=== PATIENT | female | born 1990 | race Caucasian/White ===

== ENCOUNTER 2019-03-24 12:49 | Emergency (ER) | payer OTHER ==
[2019-03-24 13:14] VITALS: BP 108/66; PULSE 86; TEMP 98.4; BMI 55.4
--- NOTE | 2019-03-24 13:15 | PDOC ---
Rapid Medical Evaluation Chief Complaint: Nausea/Vomiting Time Seen by Provider: 03/24/19 13:11 Medical Evaluation: Allergies Allergy/AdvReac Type Severity Reaction Status Date / Time No Known Allergies Allergy Verified 03/24/19 13:11 03/24/19 13:12 I have performed a brief in-person evaluation of this patient. The patient presents with a chief complaint of: N/V, cabrera, diarrhea and dizziness x 2 days after suddenly stopping paxil meds for Anxiety. pt report she gets this symptoms when she forgets to take meds . pt report vomiting 2 hrs ago. Denies fever, chills, abd pains, SOB, palpitations Pertinent physical exam findings: A&O x 3 in NAD. heart RRR. I have ordered the following: ua, uhcg, UCx. CBC, CMP The patient will proceed to the ED for further evaluation. Discharge Disposition - Diagnosis Dizziness Nausea & vomiting Qualifiers: Vomiting type: unspecified Vomiting Intractability: non-intractable Qualified Code(s): R11.2 - Nausea with vomiting, unspecified - Discharge Dispostion Condition at time of disposition: Stable - Referrals - Patient Instructions - Post Discharge Activity
[2019-03-24 14:37] LABS: BASO % 0.7 % (0-2.0); EOS % 1.9 % (0-4.5); HEMOGLOBIN 14.5 GM/dL (10.7-15.3); LYMPH % 24.5 % (8-40); MCH 27.9 pg (25.7-33.7); MCHC 32.9 g/dl (32.0-36.0); MEAN PLT VOLUME 9.1 fl (7.5-11.1); MONO % 6.1 % (3.8-10.2); NEUT % 66.8 % (42.8-82.8); PLATELET COUNT 329 K/MM3 (134-434); RBC 5.17 M/mm3 (3.60-5.2); RDW 15.1 % (11.6-15.6); WHITE BLOOD COUNT 13.4 K/mm3 (4.0-10.0)
[2019-03-24 14:50] LABS: EPI CELLS 8.7 /HPF (0-5/HPF); HYALINE CASTS 1 /lpf (0-8); PH,URINE 6.5 (5.0-8.0); URINE APPEARANCE CLEAR; URINE BACTERIA 196.5 /hpf (NEGATIVE); URINE BILIRUBIN NEGATIVE (NEGATIVE); URINE COLOR YELLOW; URINE GLUCOSE (UA) NEGATIVE (NEGATIVE); URINE KETONE NEGATIVE (NEGATIVE); URINE LEUK ESTERASE TRACE (NEGATIVE); URINE NITRITE NEGATIVE (NEGATIVE); URINE PROTEIN NEGATIVE (NEGATIVE); URINE RBC 7 /hpf (0-4); URINE UROBILINOGEN 0.2 mg/dL (0.2-1.0); URINE WBC 7 /hpf (0-5)
--- NOTE | 2019-03-24 14:58 | PDOC ---
History of Present Illness - General Chief Complaint: Nausea/Vomiting Stated Complaint: WITHDRAW OF MEDS Time Seen by Provider: 03/24/19 13:11 History Source: Patient Exam Limitations: No Limitations Past History - Past Medical History Allergies/Adverse Reactions: Allergies Allergy/AdvReac Type Severity Reaction Status Date / Time No Known Allergies Allergy Verified 03/24/19 13:11 COPD: No Dialysis: No Kidney Stones: No - Surgical History Lung Surgery: No - Immunization History Immunization Up to Date: No - Psycho Social/Smoking Cessation Hx Smoking History: Never smoked Have you smoked in the past 12 months: No Information on smoking cessation initiated: No Hx Alcohol Use: No Drug/Substance Use Hx: No *Physical Exam - Vital Signs Last Vital Signs Temp Pulse Resp BP Pulse Ox 98.4 F 86 18 108/66 98 03/24/19 13:12 03/24/19 13:12 03/24/19 13:12 03/24/19 13:12 03/24/19 13:12 - Physical Exam General Appearance: No: Apparent Distress Respiratory/Chest: positive: Lungs Clear, Normal Breath Sounds. negative: Respiratory Distress Cardiovascular: positive: Regular Rhythm, Regular Rate, S1, S2. negative: Murmur Gastrointestinal/Abdominal: positive: Normal Bowel Sounds, Soft. negative: Tender, Distended, Guarding, Rebound Integumentary: positive: Normal Color Neurologic: positive: Alert ED Treatment Course - LABORATORY CBC & Chemistry Diagram: 03/24/19 13:55 03/24/19 13:55 - ADDITIONAL ORDERS Additional order review: Laboratory Results 03/24/19 03/24/19 13:55 13:55 Urine Color Yellow Urine Appearance Clear Urine pH 6.5 Ur Specific [place] 1.017 Urine Protein Negative Urine Glucose (UA) Negative Urine Ketones Negative Urine Blood Trace Urine Nitrite Negative Urine Bilirubin Negative Urine Urobilinogen 0.2 Ur Leukocyte Esterase Trace Urine WBC (Auto) 7 Urine RBC (Auto) 7 Urine Casts (Auto) 1 U Epithel Cells (Auto) 8.7 Urine Bacteria (Auto) 196.5 Urine HCG, Qual Negative Medical Decision Making - Medical Decision Making 28 y/o F hx of anxiety, GERD, pre-DM presents with having chills from yesterday along with emesis x2 and loose stools (have now stopped) s/p stopping her Paxil medication for anxiety 03/19. Patient states she wants to stop her medication as found acupuncture to be helpful for her anxiety. Has been on Paxil 5 mg x 2 years. In the past, when she misses 1 dose, she usually gets DAWKINS, dizziness and foggy sensation. Denies fever, URI sxs, sob, cp, abd pain, urinary sxs Patient likely experiencing withdrawal sxs from SSRI discontinuation D/W psych, Dr. Smith, on taper schedule; states patient can start by taking the medication every other day (however, patient states that even if she misses a day, she won't feel well); states patient can also do half her dose x 1 week and then take the medication every other day with gradual tapering over the course of 2-3 weeks Labs were sent from [facility] and pending Advised patient to take 2.5 mg every day x 1 week and then take it every other day from next week 03/24/19 14:53 Labs unremarkable other than slightly low glucose Patient ate after getting labs drawn Plan of care discussed stable for dc 03/24/19 15:44 Discharge - Discharge Information Problems reviewed: Yes Clinical Impression/Diagnosis: Antidepressant discontinuation syndrome Qualifiers: Encounter type: initial encounter Qualified Code(s): T43.205A - Adverse effect of unspecified antidepressants, initial encounter Condition: Stable - Admission No - Additional Discharge Information Prescription Drug Monitoring Program (I-STOP) results: I-STOP not reviewed - Follow up/Referral Referrals: Tyler Grider MD [Primary Care Provider] - 2 Days - Patient Discharge Instructions Additional Instructions: Thank you for choosing [facility]. It was a pleasure taking care of you. Recommend taking Paxil 2.5 mg every day for 1 week You may then take 2.5 mg every other day for 1 week Continue following up with your doctor for proper tapering schedule Return to the Emergency Department if your symptoms worsen or persist or have other concerning symptoms. - Post Discharge Activity
[2019-03-24 15:03] LABS: ALBUMIN 3.4 g/dl (3.4-5.0); BILIRUBIN,TOTAL 0.3 mg/dL (0.2-1); BLOOD UREA NITROGEN 10.7 mg/dL (7-18); CALCIUM 9.2 mg/dL (8.5-10.1); CREATININE 0.7 mg/dL (0.55-1.3); POTASSIUM 4.6 mmol/L (3.5-5.1); TOT PROT 7.6 g/dl (6.4-8.2)
== END 2019-03-24 16:31 | disposition home or self-care (01) ==
LOC: JER 12:49
DX: R42 Dizziness and giddiness (principal); R51 Headache; R11.2 Nausea with vomiting, unspecified; T43.205A Adverse effect of unspecified antidepressants, initial encounter
CPT/HCPCS: 36415; 80053; 81003; 84703; 85025; 87086; 99282-25